=== PATIENT | male | born 1955 | race African-American/Black ===

== ENCOUNTER 2017-05-24 06:19 | Inpatient (IN) | payer OTHER ==
[~2017-05-24] VITALS: Ht 180.3 cm; Wt 54.4 kg
[2017-05-24] VITALS (7 sets, daily range): BP systolic 102–136; BP diastolic 53–78
[2017-05-24] MEDS ORDERED: NKM (06:25)
--- NOTE | 2017-05-24 06:58 | Emergency Room Report ---
History of Present Illness General Chief Complaint: General Complaint Source: Patient Present Illness HPI Patient was brought in by paramedics Found on the street shivering Patient reports that he has been extremely cold Denies any vomiting He reports that he has not eaten in several days He feels weak Denies any cough denies any neck pain Patient is upon arrival shivering, unable to obtain temperature Warming measures are initiated And history present illness remains limited as the patient is initially in acute discomfort Allergies: Coded Allergies: No Known Allergies (Unverified , 05/24/17) Patient History Past Medical History: see triage record Pertinent Family History: none Reviewed Nursing Documentation: PMH: Agreed, PSxH: Agreed Nursing Documentation-PMH Past Medical History: No History, Except For Hx Diabetes: Yes Review of Systems All Other Systems: negative except mentioned in HPI Physical Exam Vital Signs Date Time Temp Pulse Resp B/P (MAP) Pulse Ox O2 Delivery O2 Flow Rate FiO2 05/24/17 06:19 118 24 103/64 95 Room Air Sp02 EP Interpretation: reviewed, normal General Appearance: mild distress - Patient is shivering appears cold Head: normocephalic, atraumatic Eyes: bilateral eye PERRL, bilateral eye EOMI ENT: dry mucus membranes Neck: supple, thyroid normal Respiratory: lungs clear, normal breath sounds - however mildly tachypneic Cardiovascular #1: no edema, no gallop, tachycardia Gastrointestinal: non tender, no mass, other - cachectic appearing Musculoskeletal: other - Patient moving extremities without focal deficit Neurologic: alert, oriented x3, responsive Skin: other - Patient appears disheveled Lymphatic: no adenopathy Medical Decision Making Diagnostic Impression: Primary Impression: Pneumonia Additional Impression: Hypothermia ER Course Patient is a fairly complex patient with multiple differential to consideration including but not limited to cardiac cardiopulmonary and vascular emergencies Patient's initial temperature was not able to be obtained on repeat exam after warming measures temperature has gone up appropriately patient's lactic acid is elevated x-ray shows abnormal findings with likely patchy bilateral pneumonias patient initiated on antibiotics and requires admission for further care Labs Test 05/24/17 06:56 White Blood Count 2.5 K/UL (4.8-10.8) Red Blood Count 3.34 M/UL (4.70-6.10) Hemoglobin 9.7 G/DL (14.2-18.0) Hematocrit 31.3 % (42.0-52.0) Mean Corpuscular Volume 94 FL (80-99) Mean Corpuscular Hemoglobin 29.2 PG (27.0-31.0) Mean Corpuscular Hemoglobin Concent 31.2 G/DL (32.0-36.0) Red Cell Distribution Width 13.4 % (11.6-14.8) Platelet Count 172 K/UL (150-450) Mean Platelet Volume 10.9 FL (6.5-10.1) Neutrophils (%) (Auto) % (45.0-75.0) Lymphocytes (%) (Auto) % (20.0-45.0) Monocytes (%) (Auto) % (1.0-10.0) Eosinophils (%) (Auto) % (0.0-3.0) Basophils (%) (Auto) % (0.0-2.0) Differential Total Cells Counted 100 Neutrophils % (Manual) 72 % (45-75) Lymphocytes % (Manual) 23 % (20-45) Monocytes % (Manual) 5 % (1-10) Eosinophils % (Manual) 0 % (0-3) Basophils % (Manual) 0 % (0-2) Band Neutrophils 0 % (0-8) Platelet Estimate Adequate Platelet Morphology Normal Hypochromasia 2+ Anisocytosis 1+ Sodium Level 138 MMOL/L (136-145) Potassium Level 4.6 MMOL/L (3.5-5.1) Chloride Level 103 MMOL/L (98-107) Carbon Dioxide Level 20 MMOL/L (21-32) Anion Gap 15 mmol/L (5-15) Blood Urea Nitrogen 31 mg/dL (7-18) Creatinine 1.5 MG/DL (0.55-1.30) Estimat Glomerular Filtration Rate 57.8 mL/min (>60) Glucose Level 232 MG/DL (74-106) Lactic Acid Level 6.10 mmol/L (0.66-2.22) Calcium Level 9.3 MG/DL (8.5-10.1) Total Bilirubin 0.6 MG/DL (0.2-1.0) Aspartate Amino Transf (AST/SGOT) 57 U/L (15-37) Alanine Aminotransferase (ALT/SGPT) 39 U/L (12-78) Alkaline Phosphatase 98 U/L (46-116) Total Creatine Kinase 67 U/L (26-308) Creatine Kinase MB 0.9 NG/ML (0.0-3.6) Creatine Kinase MB Relative Index 1.3 Troponin I 0.000 ng/mL (0.000-0.056) Total Protein 8.4 G/DL (6.4-8.2) Albumin 1.9 G/DL (3.4-5.0) Globulin 6.5 g/dL Albumin/Globulin Ratio 0.3 (1.0-2.7) Lipase 125 U/L (73-393) Rhythm Strip Diag. Results EP Interpretation: yes Rate: 110 Rhythm: no PVC's, no ectopy, other - sinus tach Chest X-Ray Diagnostic Results Chest X-Ray Diagnostic Results : Chest X-Ray Ordered: Yes # of Views/Limited/Complete: 1 View Indication: Shortness of Breath EP Interpretation: Yes Interpretation: no effusion, no pneumothorax, other - Bilateral patchy infiltrates Impression: Other - Bilateral patchy ifiltrates Last Vital Signs Date Time Temp Pulse Resp B/P (MAP) Pulse Ox O2 Delivery O2 Flow Rate FiO2 05/24/17 06:42 105 27 103/67 05/24/17 06:19 95 Room Air Status: improved Disposition: ADMITTED INPATIENT Condition: Serious Referrals: [facility],REFERRING (PCP) MEHDI CHEEMA D.O. May 24, 2017 06:58
[2017-05-24 07:19] LABS: HEMATOCRIT 31.3 % (42.0-52.0); HEMOGLOBIN 9.7 G/DL (14.2-18.0); MEAN CORPUSCULAR VOLUME 94 FL (80-99); PLATELET COUNT 172 K/UL (150-450); RED BLOOD COUNT 3.34 M/UL (4.70-6.10); RED CELL DISTRIBUTION WIDTH 13.4 % (11.6-14.8); WHITE BLOOD COUNT 2.5 K/UL (4.8-10.8)
[2017-05-24 07:23] LABS: ANION GAP 15 mmol/L (5-15); BLOOD UREA NITROGEN 31 mg/dL (7-18); CALCIUM 9.3 MG/DL (8.5-10.1); CARBON DIOXIDE 20 MMOL/L (21-32); CHLORIDE 103 MMOL/L (98-107); CREATININE 1.5 MG/DL (0.55-1.30); POTASSIUM 4.6 MMOL/L (3.5-5.1); SODIUM 138 MMOL/L (136-145)
[2017-05-24 07:37] LABS: ALANINE AMINOTRANSFERASE 39 U/L (12-78); ALBUMIN 1.9 G/DL (3.4-5.0); ALBUMIN/GLOBULIN RATIO 0.3 (1.0-2.7); ALKALINE PHOSPHATASE 98 U/L (46-116); ASPARTATE AMINO TRANSFERASE 57 U/L (15-37); BILIRUBIN,TOTAL 0.6 MG/DL (0.2-1.0); CKMB 0.9 NG/ML (0.0-3.6); CREATINE KINASE 67 U/L (26-308)
[2017-05-24] MEDS ORDERED: Azithromycin 500 MG in NS 275 ML IV ONE (08:45)
[2017-05-24] MEDS ORDERED: cefTRIAXone 1 GM in NS 55 ML IVPB ONE (08:45)
[2017-05-24] MEDS ORDERED: NS 275 ML ONE (09:22)
[2017-05-24] MEDS ORDERED: Azithromycin 500mg Inj IV ONE (09:23)
[2017-05-24 11:56] LABS: APPEARANCE,URINE CLEAR; BILIRUBIN, URINE NEGATIVE (NEGATIVE); GLUCOSE, URINE (UA) NEGATIVE (NEGATIVE); KETONES,URINE NEGATIVE (NEGATIVE); LEUKOCYTE ESTERASE ,URINE 1+ (NEGATIVE); NITRITE,URINE NEGATIVE (NEGATIVE); PH,URINE 5 (4.5-8.0); PROTEIN,URINE 2+ (NEGATIVE); UROBILINOGEN,URINE 1 MG/DL (0.0-1.0)
[2017-05-24 12:00] LABS: COLOR,URINE YELLOW
[2017-05-24] MEDS ORDERED: guaiFENesin DM 100mg/5ml ORAL PRN (12:30)
[2017-05-24] MEDS: Albuterol/Ipratropium 3ml neb HHN SCH ×2 (13:46→19:56)
--- NOTE | 2017-05-24 14:16 | Diagnostic Imaging Report ---
Indication: Chest pain Comparison: None. FINDINGS: Extensive infiltrates are demonstrated in the central aspects of both lungs mainly interstitial. Heart is normal in size. No pleural effusions are seen. Bones are unremarkable. IMPRESSION: Extensive bilateral central interstitial infiltrates. Please correlate clinically.
[2017-05-24] MEDS: Vancomycin 1gm/D5W 275ml IVPB SCH ×2 (20:00)
[2017-05-24] MEDS: NovoLOG Insulin Flexpen SUBQ SCH (21:00)
--- NOTE | 2017-05-24 23:15 | History and Physical Report ---
DATE OF ADMISSION: 05/24/2017 REASON FOR ADMISSION: Pneumonia. HISTORY OF PRESENT ILLNESS: This is a 62-year-old male. He apparently is homeless at this time. He was found on the street shivering and brought into the emergency room by paramedics. The patient notes he has been coughing and has been extremely cold. He denies any nausea or vomiting. He has had a very poor appetite and has not eaten for several days. He was seen in the emergency room and was noted to be hypothermic. Warming measures were initiated and diagnostic workup undertaken. Hospitalization was subsequently initiated. The patient does not have any known history of tuberculosis exposure. PAST MEDICAL HISTORY: Notable for diabetes mellitus. ALLERGIES: None. MEDICATIONS: At this time, none. SOCIAL HISTORY: Prior smoker. Denies alcohol or substance abuse. REVIEW OF SYSTEMS: He has had chills. There is no history of melena or bright red blood per rectum. He denies any known history of cardiovascular disease. He is not taking anything for his diabetes at this time. There is no history of seizures. He denies history of prostate cancer or elevated PSA. PHYSICAL EXAMINATION: GENERAL: Appears older than age and continues to have chills. VITAL SIGNS: Temperature now 97, blood pressure 103/60, pulse 110, and respiratory rate 24. HEENT: Temporal wasting. Dry mucous membranes. NECK: Supple. No adenopathy. LUNGS: With bilateral rales. CARDIAC: Regular rhythm. Rapid rate. Normal S1, S2 with no murmur, rub, or gallop. ABDOMEN: Soft, nontender. No guarding or rebound. EXTREMITIES: No edema. SKIN: Intact. NEUROLOGIC: Nonfocal. LABORATORY AND DIAGNOSTIC DATA: Chest x-ray with bilateral infiltrates. White count 2.5, hemoglobin 9.7, MCV 94. Sodium 138, potassium 4.6, bicarbonate 20, BUN 31, and creatinine 1.5. Lactic acid 6.1. Glucose 232. Troponin negative. Albumin 1.9. Chest x-ray with bilateral infiltrates. EKG, sinus tachycardia with no acute abnormality. IMPRESSION: 1. Complicated pneumonia. 2. Homelessness. 3. Anemia with macrocytosis. 4. Hypothermia. 5. Leukopenia. 6. Severe protein-calorie malnutrition. 7. Type 2 diabetes mellitus, . 8. Lactic acidosis with lactic acid level of 6.1. 9. Acute kidney injury due to hypovolemia. PLAN: 1. Volume resuscitation. 2. Panculture. 3. Broad-spectrum antibiotics. 4. Insulin coverage by sliding scale. 5. Warming measures. 6. Stress ulcer and DVT prophylaxes. 7. Sputum cultures. 8. Influenza swab. 9. Social service consult. 10. Human immunodeficiency virus test. 11. Readjust broad-spectrum antibiotics once microbiology studies available. Blair Smith M.D. DR: ADELAIDE JOB#: [id number] CC:
[2017-05-25] VITALS: BP 124/67
[2017-05-25] MEDS: Albuterol/Ipratropium 3ml neb HHN SCH ×4 (01:27→20:44)
[2017-05-25] MEDS: NovoLOG Insulin Flexpen SUBQ SCH ×4 (06:12→21:58)
[2017-05-25] MEDS ORDERED: NovoLOG Insulin Flexpen SUBQ SCH (06:30)
[2017-05-25 08:00] VITALS: BP 147/57
[2017-05-25] MEDS ORDERED: cefTRIAXone 1 GM in NS 55 ML IVPB SCH (08:00)
[2017-05-25 08:13] LABS: ALANINE AMINOTRANSFERASE 52 U/L (12-78); ALBUMIN 1.5 G/DL (3.4-5.0); ALBUMIN/GLOBULIN RATIO 0.3 (1.0-2.7); ALKALINE PHOSPHATASE 124 U/L (46-116); ANION GAP 11 mmol/L (5-15); ASPARTATE AMINO TRANSFERASE 104 U/L (15-37); BILIRUBIN,TOTAL 0.3 MG/DL (0.2-1.0); BLOOD UREA NITROGEN 23 mg/dL (7-18); CALCIUM 8.2 MG/DL (8.5-10.1); CARBON DIOXIDE 19 MMOL/L (21-32); CHLORIDE 106 MMOL/L (98-107); CREATININE 1.1 MG/DL (0.55-1.30); POTASSIUM 4.6 MMOL/L (3.5-5.1); SODIUM 136 MMOL/L (136-145)
[2017-05-25 08:56] LABS: HEMATOCRIT 26.8 % (42.0-52.0); HEMOGLOBIN 8.3 G/DL (14.2-18.0); MEAN CORPUSCULAR VOLUME 92 FL (80-99); PLATELET COUNT 118 K/UL (150-450); RED BLOOD COUNT 2.92 M/UL (4.70-6.10); RED CELL DISTRIBUTION WIDTH 13.4 % (11.6-14.8); WHITE BLOOD COUNT 2.5 K/UL (4.8-10.8)
[2017-05-25] MEDS ORDERED: Azithromycin 500 MG in D5W 275 ML IV SCH (09:00)
[2017-05-25 12:00] VITALS: BP 114/62
[2017-05-25 16:00] VITALS: BP 136/61
[2017-05-25] MEDS ORDERED: Vitamin B12 1000mcg/ml Inj IM ONE (16:00)
--- NOTE | 2017-05-25 16:05 | Cardiology Report ---
APPROVED REPORT EKG Measurement Heart [id number] Sinus tachycardia with premature atrial contractions. Moderate voltage criteria for LVH, may be normal variant Nonspecific ST abnormality Abnormal ECG
[2017-05-25 20:00] VITALS: BP 109/70
[2017-05-25] MEDS: Vancomycin 1gm/D5W 275ml IVPB SCH ×2 (21:47)
[2017-05-25] MEDS ORDERED: Tubing IV Secondary IV ONE (22:59)
[2017-05-25] MEDS ORDERED: D5 1/2NS 1000ml IV ONE (22:59)
--- NOTE | 2017-05-26 02:08 | Emergency Room Report ---
History of Present Illness General Chief Complaint: General Complaint Source: Medical Record Present Illness HPI This is a CODE BLUE note. Is a 62-year-old [place] male who was homeless. He was admitted to telemetry for severe sepsis with pneumonia. Antibiotics was started. He was preliminarily tested positive for HIV also. I was called to a CODE BLUE. Per the sink staff, he had respiratory distress and she pulled off his mask. He became bradycardic and asystolic. A CODE BLUE was called. On arrival CPR was in progress. He received epinephrine already. He had good Doppler pulse with CPR none without CPR. He received a total of 4 rounds of epinephrine and remained in asystole. He was intubated. The code with subsequently called he was pronounced at 2300. Allergies: Coded Allergies: No Known Allergies (Unverified , 05/24/17) Patient History Past Medical History: see triage record, old chart reviewed Past Surgical History: other Pertinent Family History: unable to obtain Social History: Denies: drug use Immunizations: other Reviewed Nursing Documentation: PMH: Agreed, PSxH: Agreed Nursing Documentation-PMH Past Medical History: No History, Except For Hx Cardiac Problems: No Hx Diabetes: Yes Hx Cancer: No Hx Gastrointestinal Problems: No Hx Neurological Problems: Yes - per pt Bipolar & Szhitsophrenic Review of Systems Respiratory: Reports: shortness of breath All Other Systems: limited - Secondary to condition Physical Exam Vital Signs Date Time Temp Pulse Resp B/P (MAP) Pulse Ox O2 Delivery O2 Flow Rate FiO2 05/24/17 06:19 118 24 103/64 95 Room Air 05/24/17 07:17 97.7 05/24/17 08:31 6.0 05/25/17 01:37 100 Sp02 EP Interpretation: abnormal General Appearance: severe distress, cachetic ENT: other - Bilious/dark liquid in mouth Neck: supple Respiratory: respiratory distress, crackles, rales Cardiovascular #1: other - No pulse without CPR Gastrointestinal: soft Genitourinary: deferred Musculoskeletal: other - No edema Neurologic: other - No response Skin: normal inspection Procedures Critical Care Time Critical Care Time Critical care is mandated in this patient who presented with cardiac arrest. Patient require my urgent intervention to attenuate the risks of metabolic collapse which may lead to cardiovascular collapse and . Critical care time is 35 minutes excluding any reportable procedure. Critical care time included evaluation, multiple reevaluation, looking at old charts, interpreting laboratory and diagnostic data, discussing case with patient and family and consultants, and charting. CPR/Code Blue CPR/Code Blue Narrative please see dictation and code sheet for further information. Intubation Intubation : Consent: Emergent Intubation Method: orotracheal Tube Size (cm): 7.5 Breath Sounds after Intubation: equal Intubation Complications: no complications Post Intubation Xray: No Attempts: One Patient Tolerated: Well Complications: None Medical Decision Making Diagnostic Impression: Primary Impression: Pneumonia Additional Impressions: Hypothermia Cardiac arrest ER Course This patient presents with cardiac arrest. On intubation there was liquid in the mouth at dissection. There was also liquid coming out of the endotracheal tube. I suspect that he has severe septic shock and possibly aspiration also. He said come to his own this and was pronounced at 2300. I let Dr. Smith know of his situation. Last Vital Signs Date Time Temp Pulse Resp B/P (MAP) Pulse Ox O2 Delivery O2 Flow Rate FiO2 05/25/17 20:00 97.7 109 22 109/70 92 Non-Rebreather 10.0 05/25/17 19:21 100 Disposition: Condition: Referrals: [facility],REFERRING (PCP) NILSON PAINTING M.D. May 26, 2017 02:08
--- NOTE | 2017-05-26 23:05 | Progress Note ---
DATE: 05/25/2017 INTERNAL MEDICINE PROGRESS NOTE SUBJECTIVE: The patient has defervesced. He remains hypoxic on a non-rebreather mask. Cough and congestion are slightly better. Condition remains critical and prognosis guarded. OBJECTIVE: VITAL SIGNS: Blood pressure 136/61, pulse 106, respirations 22, and afebrile. LUNGS: Coarse breath sounds with rhonchi. HEART: Regular rhythm. Rapid rate. Normal S1, S2. ABDOMEN: Soft. EXTREMITIES: Trace edema. LABORATORY AND DIAGNOSTIC DATA: EKG, sinus tachycardia with PACs. White count 2.5 and hemoglobin 8.3. Lactic acid has normalized. Sodium 136, potassium 4.6, bicarbonate 19, BUN 23, and creatinine 1.1. Albumin 1.5. Folate 8.3. IMPRESSION: 1. Pneumonia. 2. Pancytopenia. 3. Folate deficiency. 4. Hypothermia, resolved. 5. Homelessness. 6. Severe protein-calorie malnutrition. 7. Type 2 diabetes mellitus. 8. Acute kidney injury, recovering. PLAN: 1. Continue hydration. 2. Antimicrobials. 3. Respiratory hygiene. 4. Vitamin supplementation. 5. Followup HIV test. Blair Smith M.D. DR: ADELAIDE JOB#: [id number] CC: LEANNE
--- NOTE | 2017-05-28 13:05 | Discharge Summary ---
Discharge Summary Hospital Course Date of Admission May 24, 2017 at 08:03 Date of Discharge May 25, 2017 at 23:00 Admitting Diagnosis HYPOTHERMIA,PANCYTOPNEA HPI Rocco Velez is a 62 year old male who was admitted on May 24, 2017 at 08:03 for Hypothermia,Pancytopnea Hospital Course summary #[id number] Discharge Discharge Disposition Patient Discharge Diagnoses: Discharge Instructions Discharge Instructions Special Instructions I have been assigned to complete a D/C Summary on this account. I was not involved in the patient management Esperanza Mao NP (Vanchtein) May 28, 2017 13:05
--- NOTE | 2017-05-29 04:00 | Discharge Summary 2 SIG ---
SUMMARY DATE OF ADMISSION: 05/24/2017 DATE OF EXPIRATION: 05/25/2017 REASON FOR ADMISSION: 62-year-old male with past medical history of diabetes was found on the street shivering and brought to emergency department for evaluation by paramedics. The patient was found to be hypothermic and coughing. No nausea. No vomiting. Per patient, he had very poor appetite and had not been eaten for several days. The patient looked extremely malnourished. Upon evaluation in the emergency department, the patient was found to be tachycardic. Chest x-ray revealed bilateral patchy infiltrates. WB 2.5, BUN-31, creatinine -1.5, hemoglobin-9.7, and MCV- 94. Electrolytes stable. Lactic acid-6.1. Glucose -232. Troponin negative. Albumin -1.9. EKG revealed sinus tachycardia. No acute ischemic changes. Warming measures were initiated. Steve was admitted to telemetry for further management. ADMITTING DIAGNOSES: 1. Complicated pneumonia. 2. Hypothermia. 3. Leukopenia. 4. Lactic acidosis. 5. Probable sepsis ( with leukopenia, hypothermia, lactic acidosis and evidence of infection). 6. Acute kidney injury, likely due to hypovolemia. 6. Severe protein-calorie malnutrition. 7. Type 2 diabetes mellitus. 8. Anemia 9. Homelessness. HOSPITAL COURSE: The patient was admitted. The patient was started with volume resuscitation. The patient was pancultured and started on empiric antibiotics. Since it was a high suspicion for HIV, HIV test was ordered, which came back positive. Warming measures continued. DVT and GI prophylaxis provided. Blood sugar was managed with sliding scale of insulin. Hemoglobin A1c at goal,- 6.6. Influenza screen was negative. Blood culture were preliminary negative. Patient was continued on empiric antibiotics. ID consult was requested. Supplemetnal oxygen via Venturi mask provided to keep pulse oximetry above 92%. Pulmonary toilet provided. Anemia workup revealed folic acid deficiency. The patient was started on replacement with folic acid. The next day patient remained leukopenic, hemoglobin down to 8.3, platelets down to 118, AST doubled. The patient suffered from cardiopulmonary arrest on 05/25/2017. Per nursing staff, the patient had respiratory distress, pulled off his Venturi mask, became bradycardic, and subsequently went to asystole. Terrie Chaidez was called and ACLS protocol was initiated. The patient required emergent oral intubation. On intubation, there was liquid in the mouth. There was also liquid coming out of endotracheal tube. Per ER physician , who intubated the patient, and was leading the Code, the patient likely had septic shock and possibly aspiration. Unfortunately despite all resuscitative efforts, the patient did not survive. The patient was pronounced at 23:00 on 2017. Cause of : cardiopulmonary arrest. FINAL DIAGNOSES: 1. Likely sepsis with shock. 2. Aspiration pneumonia. 3. Status post cardiopulmonary arrest. 4. Hypothermia. 5. Lactic acidosis. 6. Severe protein-calorie malnutrition. 7. Acute kidney injury secondary to hypovolemia. 8. Anemia with macrocytosis. 9. Leukopenia. 10. Homelessness. 11. Type 2 diabetes mellitus. 12. Human immunodeficiency virus status. 13. Folate deficiency. Blair Smith M.D. I have been assigned to dictate discharge summary on this account and I was not involved in the patient's management. Esperanza [facility] N.PAdalid DR: TRICE JOB#: [id number] CC: LEANNE
== END 2017-05-25 23:00 | disposition expired | DRG 720 ==
LOC: EDBD 06:19 → EMR 06:55 → EDBEDREQ 07:40 → 2E 08:03 → EDBEDREQ 08:24 → EDBEDREQSVC 08:57 → EDBEDREQ 09:40
PROC: 0BH17EZ Insertion of Endotracheal Airway into Trachea, Via Natural or Artificial Opening (ICD-10-PCS; principal; 2017-05-25)
DX: A41.9 Sepsis, unspecified organism (principal); J69.0 Pneumonitis due to inhalation of food and vomit; R65.21 Severe sepsis with septic shock; E43 Unspecified severe protein-calorie malnutrition; N17.9 Acute kidney failure, unspecified; T68.XXXA Hypothermia, initial encounter; D61.818 Other pancytopenia; D53.9 Nutritional anemia, unspecified; E11.9 Type 2 diabetes mellitus without complications; E86.1 Hypovolemia; Z68.1 Body mass index [BMI] 19.9 or less, adult; Z87.891 Personal history of nicotine dependence; Z59.0 Homelessness; E53.8 Deficiency of other specified B group vitamins; R09.02 Hypoxemia
CPT/HCPCS: 36415; 71045; 80053; 81003; 82550; 82553; 82607; 82746; 82962; 83036; 83605; 83690; 83735; 84443; 84484; 85007; 85025; 86689; 86703; 86710; 87040; 87081; 92950; 93005; 94640; 94664; 94760; 99285; J0171; J1815; J7620